=== PATIENT | female | born 1955 | race Caucasian/White ===

== ENCOUNTER 2020-03-29 06:36 | Day surgery (SDC) | payer OTHER ==
[2020-03-25 13:52] VITALS: BMI 27.0
--- NOTE | 2020-03-25 14:23 | RAD REPORT ---
EXAM DESCRIPTION: Constance Hughes And Rakesh (2 Views)03/25/2020 2:13 pm CLINICAL HISTORY: Prior myocardial infarction. Preop for catheterization COMPARISON: March 2019 FINDINGS: The lungs appear clear of acute infiltrate. The heart is normal size IMPRESSION: No acute abnormalities displayed
[2020-03-25 14:31] LABS: Absolute Lymphocytes (CBC) 1.3 K/uL (0.7-4.9); Basophils % 0.5 % (0-1.3); Hematocrit 41.2 % (36.0-45.0); Lymphocytes % 28.5 % (15.3-44.8); MPV 9.5 fL (7.6-11.3); RBC Red Blood Cell Count 4.23 M/uL (3.86-4.86)
[2020-03-25 14:35] LABS: Protime INR 0.89
[2020-03-25 14:38] LABS: Potassium 4.7 mmol/L (3.5-5.1)
[2020-03-29] MEDS ORDERED: HEPA 1000U/500MLS 1,000 UNIT/500 ML BAG IV ONE (06:55)
[2020-03-29] MEDS ORDERED: LIDOCAINE 1% 20 ML MDV ONE (06:55)
[2020-03-29] MEDS ORDERED: NA CHLORIDE 0.9% 500 ML ONE (07:12)
[2020-03-29] MEDS ORDERED: NA CHLORIDE 0.9% 50 ML ONE (07:44)
[2020-03-29] MEDS ORDERED: FENTANYL CITR 100 MCG/2 ML ONE (07:44)
[2020-03-29] MEDS ORDERED: ATROPINE SULF 1 MG/10 ML SYR IV ONE (07:44)
[2020-03-29] MEDS ORDERED: MIDAZOLAM HCL 5 MG/5 ML INJ ONE (07:44)
[2020-03-29] MEDS ORDERED: PRASUGREL (EFFIENT) 10 MG TAB ONE (08:00)
[2020-03-29] MEDS ORDERED: NITROGLYCERIN/D5W 25 MG/250 ML BTL IV ONE (08:00)
[2020-03-29] MEDS ORDERED: NITROGLYCERIN 100 MCG/ML SYR (for cath lab use only) IV ONE (08:00)
[2020-03-29] MEDS ORDERED: ASPIRIN 325 MG TAB ONE (08:28)
--- NOTE | 2020-03-29 08:58 | OP ---
Date of Procedure: 03/29/2020 Surgeon: Yuan Gamez MD Microbiological Lab Technician: Anna Marcum. Procedures: Left heart catheterization, selective coronary arteriogram, angioplasty and stent of the mid LAD. Indication: Unstable angina. Description Of Procedure: Ms. Charlotte Magaña is a 64-year-old woman, who has had a history of aj ry artery disease, status post RCA stent many years ago, came into the office with classic unstable a ngina. She was brought to the labor training manager today as an outpatient, prepped and draped in the routine jacqueline rile fashion. Given Versed and fentanyl for sedation. 6-Estonian sheath introduced in the right commo n femoral artery using the Seldinger technique and 10 cc xylocaine. Angiography there was normal. J Wakie/Budistkins catheter left and right were used to do the catheterization. The RCA had a proximal RCA stent that was patent. The circumflex was normal. The LAD showed an 80% stenosis. This started just bef ore diagonal and 1 to almost the second diagonal. Decision was made to intervene considering her CAD and her symptoms. XB LAD 3.5 guide with side hole was used to cannulate the left main. A Odon wi re 0.014 was used to cross the lesion successfully. A 3.0 x 20 Synergy stent was placed across the s tenosis. Following that, a 3.5 compliant balloon by 12 was used to post dilate the proximal part of the stent. Angiography following that revealed 0% residual. Patient received Angiomax during the pr ocedure. Right after this, received 60 Effient and adult aspirin. There were no complications. No rhythm issues. Blood Loss: 5 cc. Anesthesia: Total conscious sedation was 45 minutes. Postoperative Diagnoses: Coronary artery disease, status post successful angioplasty and stent in th e mid LAD. Plan: Is to send her home on aspirin, Plavix, and statin in addition to her home medicine. NB/MODL Voice ID: [id number] Report ID: [id number]
[2020-03-29 14:59] VITALS: O2SAT 100
[2020-03-29 15:41] VITALS: BP 133/66; TEMP 97.4
== END 2020-03-29 16:07 | disposition home or self-care (01) ==
LOC: CCL 06:36
DX: I25.110 Atherosclerotic heart disease of native coronary artery with unstable angina pectoris (principal); I10 Essential (primary) hypertension; E78.5 Hyperlipidemia, unspecified; F41.9 Anxiety disorder, unspecified; M54.5 Low back pain; Z88.6 Allergy status to analgesic agent
CPT/HCPCS: 85025; 80048; 36415; 85610; 85347 ×2; 85730; 71046; 93454; C1893; C1760; C1725; C1877; C9600; J2250; J3010; J0583; J7040; J1644

== ENCOUNTER 2021-07-24 19:16 | Inpatient (IN) | payer OTHER ==
--- OUTSIDE RECORDS SUMMARY | 2021-07-24 19:19 | XMS REPORT | Continuity of Care Document ---
:1955 Author Organization [facility] t Address [address] [place] [address] [address] [place] [address] Care Team Providers Name Role Phone LEXUS Attending Clinician Unavailable Giuseppe Martinez Attending Clinician [phone] CHARLA_Yoanna Admitting Clinician Unavailable Payers Payer Name Policy Type Policy Number Effective Date Expiration Date Ramses GOMEZ (MEDICARE [id number] 2021 REPLACEMENT PPO) 00:00:00 [facility] [id number] 2019 OPTIONS (MEDICARE 00:00:00 SUPPLEMENT) MEDICARE B-[place]: [id number] 1992 [employer] 00:00:00 Problems This patient has no known problems. Allergies, Adverse Reactions, Alerts This patient has no known allergies or adverse reactions. Medications This patient has no known medications. Procedures This patient has no known procedures. Encounters Start End Encounter Admission Attending Care Care Encounter Source Date/Time Date/Time Type Type Clinicians Facility Department ID 2021-06-27 2021-06-27 Outpatient CHARLA_Yoanna [facility] [id number] [place] 03:44:00 03:44:00 [facility] 2021-06-27 2021-06-27 [id number] [facility]:00:00 00:00:00 Mykel [id number] Giuseppe [id number] 2021-06-27 2021-06-27 Outpatient Charla [facility] [id number] 00:00:00 00:00:00 Mykel [id number] Giuseppe [id number] 2021-04-19 2021-04-19 Outpatient ERICKSON_R [id number] [facility] [place] 03:12:00 03:12:00 208 [facility] 2021-04-19 2021-04-19 Outpatient Charla [facility] [id number] 00:00:00 00:00:00 Mykel [id number] Giuseppe [id number] 2021-02-19 2021-02-19 Outpatient [facility]ICKSON_R [facility] 92 - [place] 04:43:00 04:43:00 125 [facility] 2021-02-19 2021-02-19 Outpatient [facility]SON_[facility] 92 - [place] 04:43:00 04:43:00 207 [facility] 2021-01-27 2021-01-27 Outpatient [facility] [id number] [place] 03:00:00 03:00:00 118 [facility] 2021-01-27 2021-01-27 Outpatient Charla [facility] [id number] 00:00:00 00:00:00 Mykel [id number] Giuseppe [id number] 2021-01-27 2021-01-27 Outpatient Charla [facility] [id number] 00:00:00 00:00:00 Mykel [id number] Giuseppe [id number] 2020-11-25 2020-11-25 Outpatient [facility] [id number] - [place] 03:20:00 03:20:00 [id number] [facility] 2020-11-09 2020-11-09 Outpatient [facility] [id number] - [place] 01:12:00 01:12:00 [id number] [facility] 2020-11-08 2020-11-08 Outpatient [facility] [id number] - [place] 02:27:00 02:27:00 830 [facility] 2020-11-01 2020-11-01 Outpatient [facility] [id number] [place] 03:39:00 03:39:00 823 [facility] 2020-11-01 2020-11-01 Outpatient Charla [facility] [id number] 00:00:00 00:00:00 Mykel [id number] Giuseppe [id number] 2020-10-01 2020-10-01 Outpatient [facility] [id number] - [place] 04:02:00 04:02:00 723 [facility] 2020-10-01 2020-10-01 Outpatient Charla [facility] [id number] 00:00:00 00:00:00 Mykel [id number] Giuseppe [id number] 2020-09-30 2020-09-30 Outpatient [facility] [id number] - [place] 01:46:00 01:46:00 722 [facility] 2020-08-31 2020-08-31 Outpatient [facility] [id number] - [place] 11:53:00 11:53:00 721 [facility] 2020-08-30 2020-08-30 Outpatient [facility] [id number] - [place] 03:01:00 03:01:00 621 [facility] 2020-08-23 2020-08-23 Outpatient [facility] [id number] - [place] 06:17:00 06:17:00 614 [facility] 2020-08-23 2020-08-23 Outpatient Charla [facility] [id number] 00:00:00 00:00:00 Mykel [id number] Giuseppe [id number] 2020-08-06 2020-08-06 Outpatient [facility] [id number] - [place] 02:50:00 02:50:00 528 [facility] 2020-07-09 2020-07-09 Outpatient [facility] [id number] [place] 02:51:00 02:51:00 430 [facility] 2020-07-09 2020-07-09 Outpatient Charla [facility] [id number] 00:00:00 00:00:00 Mykel [id number] Giuseppe [id number] 2020-07-02 2020-07-02 Outpatient [facility] [id number] [place] 01:03:00 01:03:00 423 [facility] 2020-04-20 2020-04-20 Outpatient [facility] [id number] [place] 05:15:00 05:15:00 209 [facility] 2020-04-20 2020-04-20 Outpatient [facility] [id number] [place] 05:15:00 05:15:00 421 [facility] Results This patient has no known results.
[2021-07-24] MEDS ORDERED: NITROGLYCERIN 0.4 MG/TAB SL ONE (20:07)
[2021-07-24 20:11] LABS: Absolute Lymphocytes (CBC) 2.1 K/uL (0.7-4.9); Hematocrit 45.4 % (36.0-45.0); Lymphocytes % 27.6 % (15.3-44.8); MPV 9.7 fL (7.6-11.3); Protime INR 0.95; RBC Red Blood Cell Count 4.97 M/uL (3.86-4.86)
[2021-07-24 20:17] LABS: Potassium 4.1 mmol/L (3.5-5.1)
[2021-07-24 20:21] LABS: Troponin High Sensitivity 4.9 pg/mL (<58.9)
--- NOTE | 2021-07-24 21:13 | RAD REPORT ---
EXAM DESCRIPTION: Constance Single View07/24/2021 8:48 pm CLINICAL HISTORY: Chest pain COMPARISON: Jul 18 2021 FINDINGS: The lungs appear clear of acute infiltrate. The heart is normal size IMPRESSION: No acute abnormalities displayed
--- NOTE | 2021-07-24 21:28 | EDPHYS ---
Physician Documentation [facility] Name: Charlotte Magaña Age: 65 yrs Sex: Female : 1955 Arrival Date: 07/24/2021 Time: 19:17 Bed 17 Private MD: ED Physician Yaron Malagon HPI: 07/24 20:01 This 65 yrs old Unknown Female presents to ER via Wheelchair with complaints of mh7 Shortness Of Breath, Chest Pain > 30 y/o. 20:01 The patient or guardian reports chest pain that is located primarily in the anterior mh7 chest wall, left. Onset: today, 4 hour(s) ago. The pain radiates to the left shoulder. Associated signs and symptoms: Pertinent positives: shortness of breath, Pertinent negatives: abdominal pain, cough, diaphoresis, dizziness, headache, lower extremity pain, lower extremity swelling, lightheadedness, nausea, near syncope, palpitations, recent travel, syncope, vomiting. The chest pain is described as a pressure, sharp. Duration: The patient or guardian reports multiple episodes, that are intermittent, that wax and wane, with no pattern. Modifying factors: The symptoms are alleviated by nothing. the symptoms are aggravated by exertion. Severity of pain: At its worst the pain was moderate today, in the emergency department the pain has improved moderately. Historical: - Allergies: 19:40 Morphine; jb4 - Home Meds: 19:40 dilaudid pain pump [Active]; dilaudid prn [Active]; phenoprofen 1 tab nightly [Active]; jb4 phenoprofen 1/2 tab at 1200 [Active]; Xanax 4 mg Oral nightly [Active]; Soma 350 mg Oral tab as needed [Active]; - PMHx: 19:40 Myocardial infarction; jb4 - Immunization history:: Adult Immunizations up to date. - Social history:: Smoking status: Patient reports the use of cigarette tobacco products, denies chronic smoking, but will smoke occasionally, Patient uses alcohol, occasionally. Patient/guardian denies using street drugs. ROS: 20:01 Constitutional: Negative for fever, chills, and weight loss, Eyes: Negative for injury, mh7 pain, redness, and discharge, ENT: Negative for injury, pain, and discharge, Neck: Negative for injury, pain, and swelling, Abdomen/GI: Negative for abdominal pain, nausea, vomiting, diarrhea, and constipation, Back: Negative for injury and pain, : Negative for injury, bleeding, discharge, and swelling, MS/Extremity: Negative for injury and deformity, Skin: Negative for injury, rash, and discoloration, Neuro: Negative for headache, weakness, numbness, tingling, and seizure, Psych: Negative for depression, anxiety, suicide ideation, homicidal ideation, and hallucinations, Allergy/Immunology: Negative for hives, rash, and allergies, Endocrine: Negative for neck swelling, polydipsia, polyuria, polyphagia, and marked weight changes, Hematologic/Lymphatic: Negative for swollen nodes, abnormal bleeding, and unusual bruising. Exam: 20:01 Head/Face: Normocephalic, atraumatic. Eyes: Pupils equal round and reactive to light, mh7 extra-ocular motions intact. Lids and lashes normal. Conjunctiva and sclera are non-icteric and not injected. Cornea within normal limits. Periorbital areas with no swelling, redness, or edema. Neck: Trachea midline, no thyromegaly or masses palpated, and no cervical lymphadenopathy. Supple, full range of motion without nuchal rigidity, or vertebral point tenderness. No Meningismus. Chest/axilla: Normal chest wall appearance and motion. Nontender with no deformity. No lesions are appreciated. Cardiovascular: Regular rate and rhythm with a normal S1 and S2. No gallops, murmurs, or rubs. Normal PMI, no JVD. No pulse deficits. Respiratory: Lungs have equal breath sounds bilaterally, clear to auscultation and percussion. No rales, rhonchi or wheezes noted. No increased work of breathing, no retractions or nasal flaring. Abdomen/GI: Soft, non-tender, with normal bowel sounds. No distension or tympany. No guarding or rebound. No evidence of tenderness throughout. Back: No spinal tenderness. No costovertebral tenderness. Full range of motion. Skin: Warm, dry with normal turgor. Normal color with no rashes, no lesions, and no evidence of cellulitis. MS/ Extremity: Pulses equal, no cyanosis. Neurovascular intact. Full, normal range of motion. Neuro: Awake and alert, GCS 15, oriented to person, place, time, and situation. Cranial nerves II-XII grossly intact. Motor strength 5/5 in all extremities. Sensory grossly intact. Cerebellar exam normal. Normal gait. Psych: Awake, alert, with orientation to person, place and time. Behavior, mood, and affect are within normal limits. 20:01 Constitutional: The patient appears in no acute distress, alert, awake, uncomfortable. Vital Signs: 19:30 BP 158 / 97; Pulse 72; Resp 20 S; Pulse Ox 99% on R/A; Pain 5/10; ag7 19:38 BP 145 / 96; Pulse 100; Resp 23; Temp 98.1; Pulse Ox 99% on R/A; Weight 67.59 kg (R); jb4 Height 5 ft. 4 in. (162.56 cm) (R); Pain 10/10; 20:09 Pain 3/10; ag7 20:30 BP 120 / 101; Pulse 70; Resp 12 S; Pulse Ox 97% on R/A; Pain 3/10; ag7 21:00 BP 131 / 92; Pulse 66; Resp 12 S; Pulse Ox 96% on R/A; Pain 3/10; ag7 22:00 BP 158 / 76; Pulse 68; Resp 16 S; Pulse Ox 97% ; Pain 3/10; ag7 19:38 Body Mass Index 25.58 (67.59 kg, 162.56 cm) jb4 MDM: 21:25 Differential diagnosis: abnormal EKG, acute myocardial infarction, acute pericarditis, mh7 anxiety, coronary artery disease chest wall pain, congestive heart failure costochondritis, pericarditis, pneumonia, pneumothorax, stable angina, unstable angina. HEART Score: History: Highly Suspicious (2), ECG: Non specific repolarization disturbance / LBTB / PM (1), Age: > or = 65 years (2), Risk Factors: 1 or 2 risk factors (1), [Hypercholesterolemia] [Hypertension] Troponin: < or = 1 x Normal Limit (0), Total Score = 6. Data reviewed: vital signs, nurses notes, lab test result(s), cardiac enzymes, CBC, electrolytes, EKG, radiologic studies, plain films. Data interpreted: Pulse oximetry: on room air is 99 %. Interpretation: normal. Counseling: I had a detailed discussion with the patient and/or guardian regarding: the historical points, exam findings, and any diagnostic results supporting the discharge/admit diagnosis, the presence of at least one elevated blood pressure reading (>120/80) during this emergency department visit, lab results, radiology results, the need for further work-up and treatment in the hospital. 21:28 Patient medically screened. [facility] 07/24 19:56 Order name: Protime (+inr); Complete Time: 20:58 [facility] 07/24 19:56 Order name: Ptt, Activated; Complete Time: 20:58 [facility] 07/24 19:57 Order name: COVID-19/FLU A+B (Document "Date of Onset" if Symptomatic) [facility] 07/24 20:07 Order name: Basic Metabolic Panel; Complete Time: 20:58 [facility] 07/24 20:07 Order name: Troponin High Sensitivity; Complete Time: 20:58 [facility] 07/24 20:07 Order name: CBC with Automated Diff; Complete Time: 20:58 [facility] 07/24 20:59 Order name: PROBNP; Complete Time: 21:25 [facility] 07/24 23:15 Order name: Influenza Screen (A ; Complete Time: 23:45 [facility] 07/24 23:19 Order name: Urinalysis [facility] 07/24 23:45 Order name: SARS-COV-2 RT PCR; Complete Time: 23:45 [facility] 07/25 00:30 Order name: Urine Microscopic Only [facility] 07/24 19:41 Order name: Cardiac monitoring; Complete Time: 19:41 [facility] 07/24 19:41 Order name: EKG - Nurse/Tech; Complete Time: 19:41 [facility] 07/24 19:41 Order name: IV Saline Lock; Complete Time: 19:41 [facility] 07/24 19:41 Order name: Labs collected and sent; Complete Time: 19:41 [facility] 07/24 19:41 Order name: O2 Per Protocol; Complete Time: 19:41 [facility] 07/24 19:41 Order name: O2 Sat Monitoring; Complete Time: 19:41 [facility] 07/24 19:56 Order name: Chest Single View XRAY; Complete Time: 21:14 [facility] 07/25 04:38 Order name: CBC with Automated Diff [facility] 07/25 04:56 Order name: Comprehensive Metabolic Panel [facility] 07/25 04:56 Order name: Troponin High Sensitivity [facility] 07/25 04:56 Order name: Lipid Profile [facility] 05/16 11:18 Order name: Troponin High Sensitivity EDMS Administered Medications: 20:04 Drug: Nitroglycerin 0.4 mg Route: Sublingual; ag7 20:09 Follow up: Pain 3/10 Adult; Response: No adverse reaction ag7 21:46 Drug: Lovenox (enoxaparin) 1 mg/kg Route: Sub-Q; Site: right lower abdomen; ag7 22:15 Follow up: Response: No adverse reaction ag7 Disposition Summary: 07/24/21 21:28 Hospitalization Ordered Hospitalization Status: Inpatient Admission [facility] Provider: Clay rBadford [facility] Condition: Stable [facility] Problem: new [facility] Symptoms: have improved [facility] Bed/Room Type: Standard [facility] Location: [facility] ER HOLD(07/24/21 21:45) Room Assignment: ERHOLD-(07/24/21 21:45) Diagnosis - Chest pain, unspecified [facility] Forms: - Medication Reconciliation Form 7 - SBAR form 7 Signatures: Dispatcher [employer] EDMS Pineda Tsang, ROSALBA-C ETL DEVELOPER-Cla1 Susan Mckoy, WESTLEY RN Jovanni Chowdary RN RN jb4 aYron Malagon MD MD 7 Shabana Olivia RN RN 7 Corrections: (The following items were deleted from the chart) 21:45 21:28 Telemetry/MedSurg (Inpatient) [facility] 21:45 21:28 [facility]
--- NOTE | 2021-07-24 21:28 | ER ---
Nurse's Notes [facility] Name: Charlotte Magaña Age: 65 yrs Sex: Female : 1955 Arrival Date: 07/24/2021 Time: 19:17 Bed 17 Private MD: Diagnosis: Chest pain, unspecified Presentation: 07/24 19:38 Chief complaint: Patient states: I started having a severe pressure pain in my chest jb4 about to hours ago. I started having shortness of breath at that time. I have had an IL in the past that started like this. Coronavirus screen: At this time, the client does not indicate any symptoms associated with coronavirus-19. Ebola Screen: No symptoms or risks identified at this time. Initial Sepsis Screen: Does the patient meet any 2 criteria? RR > 20 per min. HR > 90 bpm. Yes Does the patient have a suspected source of infection? No. Patient's initial sepsis screen is negative. Risk Assessment: Do you want to hurt yourself or someone else? Patient reports no desire to harm self or others. Onset of symptoms was July 24, 2021. Transition of care: patient was not received from another setting of care. 19:38 Method Of Arrival: Wheelchair jb4 19:38 Acuity: KIKI 2 jb4 Triage Assessment: 19:55 General: Appears uncomfortable. Respiratory: Reports shortness of breath at rest the ag7 patient has mild shortness of breath. Historical: - Allergies: 19:40 Morphine; jb4 - Home Meds: 19:40 dilaudid pain pump [Active]; dilaudid prn [Active]; phenoprofen 1 tab nightly [Active]; jb4 phenoprofen 1/2 tab at 1200 [Active]; Xanax 4 mg Oral nightly [Active]; Soma 350 mg Oral tab as needed [Active]; - PMHx: 19:40 Myocardial infarction; jb4 - Immunization history:: Adult Immunizations up to date. - Social history:: Smoking status: Patient reports the use of cigarette tobacco products, denies chronic smoking, but will smoke occasionally, Patient uses alcohol, occasionally. Patient/guardian denies using street drugs. Screenin:54 Abuse screen: Denies threats or abuse. Nutritional screening: No deficits noted. ag7 Tuberculosis screening: No symptoms or risk factors identified. Fall Risk No fall in past 12 months (0 pts). No secondary diagnosis (0 pts). IV access (20 points). Ambulatory Aid- None/Bed Rest/Nurse Assist (0 pts). Gait- Normal/Bed Rest/Wheelchair (0 pts) Mental Status- Oriented to own ability (0 pts). Total Severino Fall Scale indicates No Risk (0-24 pts). Assessment: 19:50 General: Appears in no apparent distress. uncomfortable, Behavior is cooperative, ag7 anxious. Pain: Complains of pain in chest Pain does not radiate. Pain. Pain: Pain does not radiate. Pain radiates to left arm Pain currently is 5 out of 10 on a pain scale. Quality of pain is described as pressure, Pain began suddenly, Is continuous. Neuro: Level of Consciousness is awake, alert, obeys commands, Oriented to Appropriate for age Fourchette Sewer are equal bilaterally. Cardiovascular: Reports chest pain, Heart tones S1 S2 present Capillary refill < 3 seconds in bilateral fingers Patient's skin is warm and dry. Pulses are 2+ in right radial artery, right dorsalis pedis artery, left radial artery, left dorsalis pedis artery, left carotid pulse and right carotid pulse Edema is absent. Respiratory: Airway is patent Trachea midline Respiratory effort is even, unlabored, Respiratory pattern is regular, symmetrical, Breath sounds are clear bilaterally. 19:54 Cardiovascular: Rhythm is sinus rhythm. ag7 20:09 Reassessment: The patient refused additional nitroglycerin. ag7 21:00 Reassessment: No changes from previously documented assessment. chest pain 3/10 Patient ag7 states feeling better. 22:01 Reassessment: Patient and/or family updated on plan of care and expected duration. Pain ag7 level reassessed. Patient is alert, oriented x 3, equal unlabored respirations, skin warm/dry/pink. Patient states feeling better. Patient states symptoms have improved. Vital Signs: 19:30 BP 158 / 97; Pulse 72; Resp 20 S; Pulse Ox 99% on R/A; Pain 5/10; ag7 19:38 BP 145 / 96; Pulse 100; Resp 23; Temp 98.1; Pulse Ox 99% on R/A; Weight 67.59 kg (R); jb4 Height 5 ft. 4 in. (162.56 cm) (R); Pain 10/10; 20:09 Pain 3/10; ag7 20:30 BP 120 / 101; Pulse 70; Resp 12 S; Pulse Ox 97% on R/A; Pain 3/10; ag7 21:00 BP 131 / 92; Pulse 66; Resp 12 S; Pulse Ox 96% on R/A; Pain 3/10; ag7 22:00 BP 158 / 76; Pulse 68; Resp 16 S; Pulse Ox 97% ; Pain 3/10; ag7 19:38 Body Mass Index 25.58 (67.59 kg, 162.56 cm) 4 ED Course: 19:17 Patient arrived in ED. bp1 19:34 Yaron Malagon MD is Attending Physician. 7 19:40 Triage completed. jb4 19:40 Arm band placed on right wrist. EKG completed in triage. Results shown to MD. jb4 19:49 Shabana Olivia, RN is Primary Nurse. ag7 19:54 No provider procedures requiring assistance completed. ag7 19:55 Patient has correct armband on for positive identification. Bed in low position. Call ag7 light in reach. Side rails up X 1. Adult w/ patient. 20:50 Chest Single View XRAY In Process Unspecified. EDMS 21:27 Clay Bradford MD is Hospitalizing Provider. 7 22:55 COVID-19/FLU A+B (Document "Date of Onset" if Symptomatic) Sent. ag7 Administered Medications: 20:04 Drug: Nitroglycerin 0.4 mg Route: Sublingual; ag7 20:09 Follow up: Pain 3/10 Adult; Response: No adverse reaction ag7 21:46 Drug: Lovenox (enoxaparin) 1 mg/kg Route: Sub-Q; Site: right lower abdomen; ag7 22:15 Follow up: Response: No adverse reaction ag7 Medication: 19:55 VIS not applicable for this client. 7 Outcome: 21:28 Decision to Hospital[facility] 15:16 Patient left the ED. vg1 Signatures: Dispatcher [employer] EDMS Jovanni Chowdary, RN RN jb4 Summer Mckoy RN RN vg1 Karen Felix bp1 Yaron Malagon MD MD 7 Shabana Olivia RN RN [facility]
--- NOTE | 2021-07-24 21:34 | P.HP ---
Certification for Inpatient Patient admitted to: Inpatient With expected LOS: >2 Midnights Patient will require the following post-hospital care: None Practitioner: I am a practitioner with admitting privileges, knowledge of patient current condition, hospital course, and medical plan of care. Services: Services provided to patient in accordance with Admission requirements found in Title 42 Section 412.3 of the Code of Federal Regulations Patient History Date of Service: 07/24/21 Primary Care Provider: Dr. Martinez Reason for admission: Unstable angina History of Present Illness: 65-year-old female with history of CAD, chronic pain presents emergency department for chest pain. Patient reports pain is described as pressure-like substernal radiating to the left arm reports she is had episodes on and off since late May. She reports that she had an outpatient stress test with Dr. Gamez couple weeks ago which was abnormal and she is supposed to be working on scheduling a heart catheterization. Patient was evaluated here in the emergency department her initial troponin high-sensitivity was negative labs were othe rwise unremarkable EKG was without ST elevation chest x-ray with no acute abnormalities displayed. Patient with unstable angina was covered with Lovenox in the ED will admit for further evaluation and management with cardiology consult. We are chest wall not adhering there is lingual swelling and redness Allergies morphine Adverse Reaction (Intermediate, Verified 07/18/21 09:17) Itching Home Medications: Alprazolam [Xanax] 1 tab PO TID 07/08/15 Carisoprodol [Soma] 350 mg PO PRN PRN 07/08/15 Esomeprazole Mag Trihydrate [Nexium] 1 cap PO DAILY 07/08/15 Fenoprofen Calcium [Naolfon] 1 tab PO BID 07/08/15 Hydromorphone HCl [Dilaudid] 1 tab PO TID 07/08/15 - Past Medical/Surgical History Diabetic: No -: Chronic pain syndrome -: Coronary artery disease -: cholecystectomy -: back surgery -: breast reduction -: pain pump insertion Psychosocial/ Personal History: Patient lives at home with her - Family History Father -: Heart disease - Social History Smoking Status: Current every day smoker Counseled patient to stop smoking for: less than 10 minutes Smoking therapy provided: No Alcohol use: Yes CD- Drugs: No Caffeine use: Yes Place of Residence: Home Review of Systems 10-point ROS is otherwise unremarkable Respiratory: Shortness of Breath Cardiovascular: Chest Pain Physical Examination - Physical Exam General: Alert, In no apparent distress, Oriented x3 HEENT: Atraumatic, PERRLA, Mucous membr. moist/pink, EOMI, Sclerae nonicteric Neck: Supple, 2+ carotid pulse no bruit, No LAD, Without JVD or thyroid abnormality Respiratory: Clear to auscultation bilaterally, Normal air movement Cardiovascular: Regular rate/rhythm, Normal S1 S2 Gastrointestinal: Normal bowel sounds, No tenderness Musculoskeletal: No tenderness Integumentary: No rashes Neurological: Normal gait, Normal speech, Normal strength at 5/5 x4 extr, Normal tone, Normal affect Lymphatics: No axilla or inguinal lymphadenopathy - Studies Laboratory Data (last 24 hrs) 07/24/21 19:30: WBC 7.6 D, Hgb 15.7 H D, Hct 45.4 H D, Plt Count 320 D 07/24/21 19:30: Sodium 138, Potassium 4.1, BUN 15, Creatinine 0.80, Glucose 108 H 07/24/21 19:30: PT 10.4, INR 0.95, APTT 32.4 Assessment and Plan - Plan Assessment: Unstable angina history CAD Chronic pain Plan: Unstable angina history CAD: CABG with full dose Lovenox, trend troponin, monitor on telemetry, cardiology consult in place. N.p.o. after midnight. Patient reports recent abnormal stress test. Was taken off of aspirin and Plavix given bleeding from nose/ears as well as peptic ulcer. PRN nitroglycerin Chronic pain: Patient with pain pump in place DVT PPX: Full dose Lovenox Code status: Full code Discharge Plan: Home Plan to discharge in: 48 Hours - Advance Directives Does patient have a Living Will: No Does patient have a Durable POA for Healthcare: No - Code Status/Comfort Care Code Status Assessed: Yes (Full code) Critical Care: No Time Spent Managing Pts Care (In Minutes): 55
[2021-07-24] MEDS ORDERED: ENOXAPARIN 80 MG/0.8 ML SQ ONE (21:46)
[2021-07-24] MEDS ORDERED: ONDANSETRON 4 MG/2 ML VIAL IV PRN (22:22)
[2021-07-24] MEDS ORDERED: NITROGLYCERIN 0.4 MG/TAB SL PRN (22:22)
[2021-07-24 23:19] LABS: Urine Appearance Clear (Clear); Urine Bilirubin Negative (Negative); Urine Blood Negative (Negative); Urine Color Yellow (Yellow); Urine Glucose Negative (Negative); Urine Protein Negative (Negative); Urine Urobilinogen 0.2 mg/dL (0.2-1.0); Urine pH 6.5 (5.0-7.0)
[2021-07-24 23:35] LABS: Urine Microscopic Reflex ORDER UMIC
[2021-07-24] MEDS ORDERED: ACETAMINOPHEN 325 MG TABLET PO PRN (23:56)
[2021-07-24] MEDS ORDERED: MELATONIN 5 MG TABLET PO PRN (23:56)
[2021-07-25] MEDS ORDERED: MELATONIN 5 MG TABLET PO ONE (00:11)
[2021-07-25] MEDS ORDERED: HYDROMORPHONE HCL 0.5 MG/0.5 ML INJ ONE ×2 (00:14→12:10)
[2021-07-25] MEDS: HYDROMORPHONE HCL 0.5 MG/0.5 ML INJ IV PRN ×2 (00:18→12:12)
[2021-07-25 00:29] LABS: Urine Bacteria <20 /HPF (<20); Urine RBC <5 /HPF (NONE SEEN); Urine Urothelial Cells <5 /HPF (NONE SEEN)
[2021-07-25 03:16] VITALS: BMI 25.3
[2021-07-25 04:21] LABS: Absolute Lymphocytes (CBC) 2.3 K/uL (0.7-4.9); Hematocrit 41.9 % (36.0-45.0); Lymphocytes % 33.6 % (15.3-44.8); MPV 9.6 fL (7.6-11.3); RBC Red Blood Cell Count 4.52 M/uL (3.86-4.86)
[2021-07-25 04:53] LABS: Albumin 3.9 g/dL (3.4-5.0); Bilirubin Total 0.5 mg/dL (0.2-1.0); Potassium 3.8 mmol/L (3.5-5.1); Protein, Total 7.1 g/dL (6.4-8.2); Troponin High Sensitivity 6.3 pg/mL (<58.9)
[2021-07-25] MEDS ORDERED: NA CHLORIDE 0.9% 500 ML ONE (07:40)
[2021-07-25] MEDS ORDERED: PNEUMOCOCCAL VACCINE 0.5 ML IMVAC ONE (08:00)
[2021-07-25] MEDS ORDERED: NA CHLORIDE 0.9% 0 ML ONE (08:50)
[2021-07-25] MEDS ORDERED: MIDAZOLAM HCL 2 MG/2 ML INJ ONE ×3 (08:50→08:59)
[2021-07-25] MEDS ORDERED: ATROPINE SULF 1 MG/10 ML SYR IV ONE (08:51)
[2021-07-25] MEDS ORDERED: FENTANYL CITR 100 MCG/2 ML ONE (08:52)
[2021-07-25] MEDS ORDERED: HEPA 1000U/500MLS 1,000 UNIT/500 ML BAG IV ONE (08:54)
[2021-07-25] MEDS ORDERED: LIDOCAINE 1% MPF 30 ML VIAL ONE (08:54)
[2021-07-25] MEDS ORDERED: ENOXAPARIN 80 MG/0.8 ML SQ SCH (09:00)
--- NOTE | 2021-07-25 10:04 | EKG ---
Test Date: 2021-07-24 Test Time: 19:38:26 Flume Ride Operator: SHERWIN MEASUREMENT RESULTS: Intervals: Rate: 92 WY: 148 QRSD: 76 QT: 374 QTc: 462 [place]: P: 54 WY: 148 QRS: 71 T: 72 INTERPRETIVE STATEMENTS: Sinus rhythm with premature atrial complexes Nonspecific ST abnormality Abnormal ECG Compared to ECG 07/07/2015 23:45:50 No significant changes Electronically Signed On 07-25-21 10:02:34 CDT by Yuan Gamez
--- NOTE | 2021-07-25 11:17 | OP ---
Date of Procedure: 07/25/2021 Surgeon: Yuan Gamez MD Telephone Assembler: Ms. Vicki Fitch. Admitted to Dr. Bradford's service on 07/24/2021. Indication: Patient was seen on 07/25/2021, brought to the slab worker because of history of coronary a rtery disease, unstable angina, recent abnormal stress test. Procedure In Detail: Ms. Magaña was brought to the slab worker as an inpatient, prepped and draped in a routine sterile fashion, given Versed and fentanyl for sedation. A 6-[place] sheath was introduced i n the right common femoral artery successfully using 10 cc of xylocaine and Seldinger technique. JR4 catheter and JL4 catheter were used to cannulate the right main and left main respectively. She had a patent stent in the proximal RCA without any in-stent restenosis. She had a proximal LAD stent th at was patent. She had a 70% ostial diagonal stenosis. She had a 50% ostial OM stenosis. She had a very small distal circumflex with 90% stenosis was nondominant. Patient tolerated the procedure wel l. There were no complications. Estimated Blood Loss: 5 mL. Anesthesia: Total conscious sedation was 45 minutes. Impression: Moderate to severe coronary artery disease. Plan: To continue medical therapy. Patient had an Angio-Seal done in the right groin after angiogra phy. It was done and it was normal. She will be at bedrest for 2 hours after the procedure, and she will go home after that. I will see her in the office in 2 weeks. JOSÉ MIGUEL/YANNICK Voice ID: [id number] Report ID: [id number]
[2021-07-25 12:16] VITALS: TEMP 98.2
[2021-07-25 13:59] VITALS: BP 137/84; O2SAT 99
--- NOTE | 2021-07-25 14:45 | CON ---
Date of Consultation: 07/25/[address] Bradford on 07/24/2021 for unstable angina. I saw the patient on 07/25/2021. History Of Present Illness: Ms. Magaña is a 65-year-old woman, known to have a history of dyslipidem ia, anxiety, coronary artery disease, intolerant to Plavix. Has had RCA stent and LAD stent in the p ast. She has been having chest pain with an abnormal stress test in the office. She comes in to the emergency room on 07/24/2021 with unstable angina symptoms, substernal chest pressure radiating to t he back, some diaphoresis, shortness of breath. Denied PND, orthopnea, pedal edema, palpitation, or syncope. EKG showed nonspecific changes. Troponin is negative. Past Medical History: As stated above. Allergies: SHE IS ALLERGIC TO MORPHINE. Review of Systems: Negative. Social History: Negative. Family History: Positive for heart disease. Medications: At home include TriCor, Zocor, and Xanax. Physical Examination: Vital Signs: Stable, afebrile. HEENT: Negative. Neck: Supple without any bruit, lymphadenopathy, JVD, or thyromegaly. Chest: Clear to auscultation and percussion. Cardiac: Revealed a regular rhythm and rate. No murmurs, gallops, or rubs. Abdomen: Benign. Extremities: Revealed no clubbing, cyanosis, or edema. Diagnostic Data: Within normal limits except the positive stress test in the office. Impression And Plan: Unstable angina and the patient with history of coronary artery disease, status post RCA stent and LAD stent in the past. Symptoms are very concerning for recurrent stenosis and l esion. In addition to the positive stress test, we will perform a heart catheterization today to def ine her coronary anatomy. The patient understands the risks and benefits of the procedure and she ag christina to proceed. Her other problems include anxiety and dyslipidemia are well controlled at this thor e. We will see what her catheterization shows before making further decisions regarding medical ther apy or intervention. Case was discussed with Dr. Bradford. JOSÉ MIGUEL/YANNICK Voice ID: [id number] Report ID: [id number]
[2021-07-25] MEDS ORDERED: ATORVASTATIN 40 MG TAB PO SCH (21:00)
--- NOTE | 2021-08-03 21:54 | P.DS ---
Admission Date: 07/24/21 Discharge Date: 07/25/21 Primary Care Provider: Dr. Martinez Disposition: ROUTINE DISCHARGE Discharge Condition: GOOD Reason for Admission: Unstable angina Consultations: Cardiology - Dr. Gamez Procedures: Problem List Unstable angina history of CAD s/p RCA & LAD stent, intolerant to plavix Chronic pain Brief History of Present Illness: 65yo F, PMH: CAD s/p stents, chronic pain Presented to ED with chest pain, described as pressure-like, substernal, radiating to left arm. Intermittent episodes since May. Recently had abnormal stress test and was working on getting scheduled for outpatient cardiac cath with Dr. Gamez. Pain was more severe this time, so she presented to ED. Labs were otherwise unremarkable EKG was without ST elevation chest x-ray with no acute abnormalities displayed. Patient with unstable angina was covered with Lovenox in the ED will admit for further evaluation and management with cardiology consult. Hospital Course: Patient underwent cardiac catheterization with Dr. Gamez, and was noted to have coronary artery stenosis in small vessels. 70% ostial diagonal stenosis. 50% ostial OM stenosis. Very small ~90% distal circumflex stenosis (non- dominant) Dr. Gamez recommended medical management / optimization, not amenable to stenting. Discharged home to increase simvastatin dose to 80mg daily from 40mg. Recommend daily aspirin 81mg, however patient has been previously counselled on stopping this medication due to gastric ulcers / bleeding. Follow up with PCP within 1 week Follow up with Cardiology in 2-3 weeks. Vital Signs/Physical Exam: Temp Pulse Resp BP Pulse Ox 98.2 F 70 12 137/84 100 07/25/21 12:00 07/25/21 13:39 07/25/21 13:39 07/25/21 13:39 07/25/21 12:42 General: Alert, In no apparent distress, Oriented x3 HEENT: Mucous membr. moist/pink, Sclerae nonicteric Respiratory: Clear to auscultation bilaterally, Normal air movement Cardiovascular: No edema, Regular rate/rhythm Gastrointestinal: Soft and benign, Non-distended, No tenderness Musculoskeletal: No erythema, No tenderness Integumentary: No significant lesion, No tenderness/swelling Neurological: Normal speech, Normal affect Laboratory Data at Discharge: WBC 6.7 K/uL (4.3-10.9) 07/25/21 03:27 Hgb 14.2 g/dL (12.0-15.0) 07/25/21 03:27 Hct 41.9 % (36.0-45.0) 07/25/21 03:27 Plt Count 271 K/uL (152-406) 07/25/21 03:27 PT 10.4 SECONDS (9.5-12.5) 07/24/21 19:30 INR 0.95 07/24/21 19:30 APTT 32.4 SECONDS (24.3-36.9) 07/24/21 19:30 Sodium 139 mmol/L (136-145) 07/25/21 03:27 Potassium 3.8 mmol/L (3.5-5.1) 07/25/21 03:27 BUN 18 mg/dL (7-18) 07/25/21 03:27 Creatinine 0.67 mg/dL (0.55-1.3) 07/25/21 03:27 Glucose 104 mg/dL (74-106) 07/25/21 03:27 Total Bilirubin 0.5 mg/dL (0.2-1.0) 07/25/21 03:27 AST 18 U/L (15-37) 07/25/21 03:27 ALT 21 U/L (12-78) 07/25/21 03:27 Alkaline Phosphatase 72 U/L (45-117) 07/25/21 03:27 Triglycerides 146 mg/dL (<150) 07/25/21 03:27 Cholesterol 226 mg/dL (<200) H 07/25/21 03:27 HDL Cholesterol 72 mg/dL (40-60) H 07/25/21 03:27 Cholesterol/HDL Ratio 3.14 07/25/21 03:27 Home Medications: Alprazolam [Xanax] 1 tab PO TID 07/08/15 Carisoprodol [Soma] 350 mg PO PRN PRN 07/08/15 Esomeprazole Mag Trihydrate [Nexium] 1 cap PO DAILY 07/08/15 Fenoprofen Calcium [Naolfon] 1 tab PO BID 07/08/15 Hydromorphone HCl [Dilaudid] 1 tab PO TID 07/08/15 Fenoprofen Calcium 600 tab PO DAILY 07/25/21 Fluoxetine HCl [Prozac] 40 cap PO DAILY 07/25/21 Linaclotide [Linzess] 145 cap PO DAILY 07/25/21 Omeprazole [Prilosec] 40 cap PO 07/25/21 Quetiapine Fumarate [Seroquel] 100 cap PO DAILY 07/25/21 Simvastatin 80 mg PO DAILY 30 Days #30 tab 07/25/21 Temazepam [Restoril] 30 cap PO DAILY 07/25/21 New Medications: Simvastatin 80 mg PO DAILY 30 Days #30 tab Followup: Mykel Martinez MD [Primary Care Provider] - Time spent managing pt's care (in minutes): 45
== END 2021-07-25 15:15 | disposition home or self-care (01) | DRG 287 ==
LOC: ER 19:16 → ERHOLD 21:39
PROVIDERS: ADMIT Hospitalist; ATTEND Hospitalist
PROC: B201YZZ Plain Radiography of Multiple Coronary Arteries using Other Contrast (ICD-10-PCS; principal; 2021-07-25)
DX: I25.110 Atherosclerotic heart disease of native coronary artery with unstable angina pectoris (principal); G89.4 Chronic pain syndrome; F41.9 Anxiety disorder, unspecified; E78.5 Hyperlipidemia, unspecified; F17.200 Nicotine dependence, unspecified, uncomplicated; I25.2 Old myocardial infarction; Z20.822 Contact with and (suspected) exposure to COVID-19
CPT/HCPCS: 36415; 71045; 80048; 80053; 80061; 81003; 81015; 83880; 84484; 85025; 85610; 85730; 87086; 87088; 87804; 93005; 93454; 96372; 99284; C1760; C1893; G0269; J0583; J1170; J1644; J2250; J3010; J7040; Q9966; U0003